=== PATIENT | male | born 1990 | race African-American/Black ===

== ENCOUNTER 2017-03-25 08:52 | Emergency (ER) | payer SELFPAY ==
[~2017-03-25] VITALS: Ht 187.9 cm; Wt 95.3 kg
[~2017-03-25 08:52] MED LIST: CIPROFLOXACIN500 MG PO; Motrin,Rufen800 MG PO
[2017-03-25 09:39] LABS: BILIRUBIN NEGATIVE (NEGATIVE); BLOOD 2+ (NEGATIVE); CLARITY CLEAR (CLEAR); COLOR YELLOW (YELLOW); GLUCOSE NEGATIVE (NEGATIVE); KETONE NEGATIVE (NEGATIVE); LEUKO ESTERASE TRACE (NEGATIVE); NITRITE NEGATIVE (NEGATIVE); PROTEIN NEGATIVE (NEGATIVE); UROBILINOGEN 0.2 E.U./dl (0.2-1.0)
[2017-03-25 09:51] LABS: BACTERIA TRACE; EPITHELIAL CELLS 0-2; URINE REFLEX COMMENT YES (NO); WBC 21-30 wbc/hpf (0-5)
== END 2017-03-25 10:15 | disposition home or self-care (01) ==
LOC: ED 08:52
PROVIDERS: Registered Nurse
DX: Z20.2 Contact with and (suspected) exposure to infections with a predominantly sexual mode of transmission (principal); F17.200 Nicotine dependence, unspecified, uncomplicated

== ENCOUNTER 2018-03-19 11:53 | Emergency (ER) | payer OTHER ==
[~2018-03-19] VITALS: Ht 187.9 cm; Wt 95.3 kg
[2018-03-19] MEDS ORDERED: KENALOG 0.1%80 GM T (13:08)
== END 2018-03-19 13:16 | disposition home or self-care (01) ==
LOC: ED 11:53
DX: R20.2 Paresthesia of skin (principal); Z77.098 Contact with and (suspected) exposure to other hazardous, chiefly nonmedicinal, chemicals

== ENCOUNTER 2018-08-22 22:31 | Emergency (ER) | payer SELFPAY ==
[~2018-08-22] VITALS: Wt 88.9 kg
[~2018-08-22 22:31] MED LIST changes: +KENALOG 0.1%80 GM T
[2018-08-22] MEDS ORDERED: DELTASONE20 M1 PO (23:19)
[2018-08-22] MEDS ORDERED: ZITHROMAX250 MG PO (23:19)
== END 2018-08-22 23:37 | disposition home or self-care (01) ==
LOC: ED 22:31
DX: J40 Bronchitis, not specified as acute or chronic (principal); F10.10 Alcohol abuse, uncomplicated

== ENCOUNTER 2018-09-09 12:31 | Emergency (ER) | payer SELFPAY ==
[~2018-09-09] VITALS: Ht 187.9 cm; Wt 79.4 kg
[~2018-09-09 12:31] MED LIST changes: +DELTASONE20 M1 PO; +ZITHROMAX250 MG PO
[2018-09-09 12:50] LABS: BASO % 0.8 % (0.0-1.0); EOS # 0.3 10*3/uL (0.0-0.4); EOS % 7.6 % (1.0-4.0); HEMATOCRIT 46.9 % (42.0-52.0); HEMOGLOBIN 16.2 g/dl (14.0-18.0); LYMPH # 1.5 10*3/uL (1.3-4.4); LYMPH % 42.6 % (27.0-41.0); MEAN CELL VOLUME 92.9 fl (80.0-94.0); MEAN CORPUSCULAR HGB 32.1 pg (27.0-31.0); MEAN CORPUSCULAR HGB CONC 34.5 g/dl (33.0-37.0); MEAN PLATELET VOLUME 10.1 fl (9.6-12.3); MONO # 0.4 10*3/uL (0.1-1.0); MONO % 9.8 % (3.0-9.0); NEUT # 1.4 10*3/uL (2.3-7.9); NEUT % 38.9 % (47.0-73.0); PLATELET COUNT AUTOMATED 293 10*3/uL (130-400); RED BLOOD COUNT 5.05 10*6/uL (4.50-5.90); RED CELL DISTRI WIDTH 12.1 % (0-14.5); WHITE BLOOD COUNT 3.6 10*3/uL (4.8-10.8)
[2018-09-09 13:12] LABS: ALBUMIN 3.8 gm/dl (3.1-4.5); ALKALINE PHOSPHATASE 74 U/L (45-117); BUN 15 mg/dl (7-24); CHLORIDE 106 mmol/L (98-107); CREATININE 1.17 mg/dL (0.70-1.30); LIPASE 128 U/L (73-393); POTASSIUM 4.5 mmol/L (3.5-5.1); SGOT/AST 17 IU/L (3-35); SGPT/ALT 19 U/L (12-78); SODIUM 141 mmol/L (136-145); TOTAL PROTEIN 7.1 gm/dL (6.4-8.2)
== END 2018-09-09 12:59 | disposition home or self-care (01) ==
LOC: ED 12:31
PROVIDERS: Emergency Medicine
DX: R10.9 Unspecified abdominal pain (principal); R19.7 Diarrhea, unspecified; R11.10 Vomiting, unspecified; F17.200 Nicotine dependence, unspecified, uncomplicated; Z79.899 Other long term (current) drug therapy; Z79.2 Long term (current) use of antibiotics

== ENCOUNTER 2019-02-15 11:37 | Emergency (ER) | payer BC ==
[~2019-02-15] VITALS: Ht 187.9 cm; Wt 99.3 kg
[2019-02-15] MEDS ORDERED: ALLEGRA-D 24 H1 EACH PO (11:55)
[2019-02-15] MEDS ORDERED: FLONASE ALLERG9.9 ML NAS (11:55)
== END 2019-02-15 12:20 | disposition home or self-care (01) ==
LOC: ED 11:37
DX: J32.1 Chronic frontal sinusitis (principal)

== ENCOUNTER 2021-03-17 15:53 | Emergency (ER) | payer BC ==
[~2021-03-17] VITALS: Ht 187.9 cm; Wt 104.3 kg
[~2021-03-17 15:53] MED LIST changes: +ALLEGRA-D 24 H1 EACH PO; +FLONASE ALLERG9.9 ML NAS
[2021-03-17] MEDS ORDERED: CLARITIN10 MG PO (16:57)
== END 2021-03-17 17:20 | disposition home or self-care (01) ==
LOC: ED 15:53
DX: T78.1XXA Other adverse food reactions, not elsewhere classified, initial encounter (principal); R06.02 Shortness of breath; R05 Cough; X58.XXXA Exposure to other specified factors, initial encounter

== ENCOUNTER 2023-11-18 11:08 | Emergency (ER) | payer OTHER ==
[~2023-11-18] VITALS: Ht 185.4 cm; Wt 103.4 kg
[~2023-11-18 11:08] MED LIST changes: +CLARITIN10 MG PO
[2023-11-18 12:46] LABS: BASO % 0.7 % (0.0-1.0); EOS # 0.2 10*3/uL (0.0-0.4); EOS % 5.3 % (1.0-4.0); HEMATOCRIT 46.3 % (42.0-52.0); LYMPH # 1.1 10*3/uL (1.3-4.4); LYMPH % 24.4 % (27.0-41.0); MEAN CORPUSCULAR HGB 31.1 pg (27.0-31.0); MEAN CORPUSCULAR HGB CONC 33.5 g/dl (33.0-37.0); MEAN PLATELET VOLUME 10.3 fl (9.6-12.3); MONO # 0.4 10*3/uL (0.1-1.0); MONO % 8.3 % (3.0-9.0); NEUT # 2.7 10*3/uL (2.3-7.9); NEUT % 61.1 % (47.0-73.0); PLATELET COUNT AUTOMATED 272 10*3/uL (130-400); RED BLOOD COUNT 4.98 10*6/uL (4.50-5.90); RED CELL DISTRI WIDTH 11.9 % (0-14.5); WHITE BLOOD COUNT 4.3 10*3/uL (4.8-10.8)
[2023-11-18 12:59] LABS: ACT PARTIAL THROMBO TIME 29.2 SECONDS (20.0-32.1)
[2023-11-18 13:07] LABS: ALKALINE PHOSPHATASE 65 U/L (46-116); BUN 8 mg/dl (9-23); CHLORIDE 108 mmol/L (98-107); POTASSIUM 4.5 mmol/L (3.4-5.1); SGPT/ALT 23 U/L (5-49); TOTAL PROTEIN 6.9 gm/dL (6.0-8.0)
[2023-11-18 13:09] LABS: BILIRUBIN Negative (Negative); BLOOD Trace-Lysed (Negative); CLARITY Clear (Clear); COLOR Yellow (Yellow); GLUCOSE Negative (Negative); KETONE Negative (Negative); LEUKO ESTERASE Negative (Negative); NITRITE Negative (Negative); PH 5.5 (4.5-8.0); SPECIFIC GRAVITY 1.015 (1.001-1.030)
[2023-11-18] MEDS ORDERED: AMOX-CLAV 875-1 EACH PO (13:14)
[2023-11-18] MEDS ORDERED: ONDANSETRON4 MG SL (13:15)
[2023-11-18 13:34] LABS: MUCOUS TRACE
== END 2023-11-18 14:11 | disposition home or self-care (01) ==
LOC: ED 11:08
PROVIDERS: Nurse Practitioner Family
DX: R42 Dizziness and giddiness (principal); J32.9 Chronic sinusitis, unspecified; R10.2 Pelvic and perineal pain; Z91.013 Allergy to seafood; F17.210 Nicotine dependence, cigarettes, uncomplicated

== ENCOUNTER 2024-05-31 07:22 | Emergency (ER) | payer OTHER ==
[~2024-05-31] VITALS: Ht 187.9 cm; Wt 99.8 kg
[~2024-05-31 07:22] MED LIST changes: +AMOX-CLAV 875-1 EACH PO; +ONDANSETRON4 MG SL
[2024-05-31] MEDS ORDERED: ZERVIATE1 EACH OP (07:36)
== END 2024-05-31 07:42 | disposition home or self-care (01) ==
LOC: ED 07:22
DX: H10.13 Acute atopic conjunctivitis, bilateral (principal); Z91.013 Allergy to seafood; Z87.891 Personal history of nicotine dependence